=== PATIENT | male | born 1965 | race Caucasian/White ===

== ENCOUNTER 2020-01-08 17:21 | Observation (INO) | payer OTHER ==
--- NOTE | 2020-01-08 17:27 | PDOC ---
History of Present Illness - General Chief Complaint: Cold Symptoms Stated Complaint: FLU Time Seen by Provider: 01/08/20 17:24 History Source: Patient Exam Limitations: No Limitations - History of Present Illness Initial Comments: 01/08/20 17:24 Raúl Callejas is a 54M with PMH unmedicated HTN, HLD, DM presenting with flu- like symptoms including fever and LAI. 4 days ago was at work with a [employer] company when he began to have fever, chills, myalgias, diarrhea to the point of being unable to work, tried to sleep it off but did not improve overnight, got a ride back home the next day. Did not improve as the week went on, tried pablo tea and other remedies to control fev er, took Tylenol 2 days ago. No N/V, poor appetite but good PO liquids. Has had constant coughing with yellow mucoid sputum, and says that his abdomen did not hurt earlier this week but started having sore abdominal muscles after coughing so much, denies any other abdominal pain or urinary sx. LAI describes as intermittent frontal LAI lasting 20 mins and disappears on its own, no vision changes but feels dizzy. Reports chest pain at rest last night and this morning, sharp and non-radiating below sternum, denies any recent trauma, palpitations, or SOB, has not had sx like this before. Has history of HTN, DM, and HLD, but has not seed a doctor in years and does not take medications. Diagnosed when he was taking out life insurance and was being evaluated. Says his BP is normally in the 170s to 190s, and that he tries to control his diabetes with diet only and does not check BG. Past History - Past Medical History Allergies/Adverse Reactions: Allergies Allergy/AdvReac Type Severity Reaction Status Date / Time No Known Allergies Allergy Verified 01/08/20 17:23 Home Medications: Ambulatory Orders NK [No Known Home Medication] 01/08/20 Diabetes: No HTN: No - Psycho Social/Smoking Cessation Hx Smoking Status: Yes Smoking History: Current every day smoker Number of Cigarettes Smoked Daily: 10 Review of Systems - Review of Systems Able to Perform ROS?: Yes Constitutional: Yes: Chills HEENTM: No: Eye Pain, Blurred Vision, Throat Swelling, Mouth Pain, Dental Problems, Difficulty Swallowing Respiratory: Yes: Cough, Productive cough. No: Shortness of Breath Cardiac (ROS): Yes: Chest Pain. No: Irregular Heart Rate, Lightheadedness, Palpitations, Syncope, Chest Tightness ABD/GI: Yes: Diarrhea, Nausea, Poor Appetite, Poor Fluid Intake, Abdominal cramping. No: Constipated, Difficulty Swallowing, Vomiting : No: Symptoms Reported Musculoskeletal: No: Symptoms Reported Integumentary: No: Symptoms Reported Neurological: Yes: Headache, Dizziness. No: Numbness, Paresthesia, Unsteady Gait Endocrine: No: Symptoms Reported Hematologic/Lymphatic: No: Symptoms Reported All Other Systems: Reviewed and Negative *Physical Exam - Physical Exam General Appearance: Yes: Nourished, Appropriately Dressed, Obese HEENT: positive: EOMI, MAX, Normal Voice, Symmetrical, Pharynx Normal, Hearing Grossly Normal. negative: Scleral Icterus (R), Scleral Icterus (L), Pharyngeal Erythema, Tonsillar Exudate, Tonsillar Erythema Neck: positive: Trachea midline, Normal Thyroid, Supple. negative: Tender, Rigid, Lymphadenopathy (R), Lymphadenopathy (L), Tender lateral, Tender midline Respiratory/Chest: positive: Lungs Clear, Normal Breath Sounds, Respiratory Distress. negative: Chest Tender, Accessory Muscle Use, Labored Respiration, Rapid RR, Decreased Breath Sounds, Crackles, Rales, Rhonchi, Stridor, Wheezing Cardiovascular: positive: Regular Rhythm, Regular Rate. negative: Murmur Gastrointestinal/Abdominal: positive: Normal Bowel Sounds, Flat, Soft. negative: Tender, Organomegaly, Pulsatile Mass, Guarding, Rebound Musculoskeletal: positive: Normal Inspection. negative: CVA Tenderness Extremity: positive: Normal Capillary Refill, Normal Inspection, Normal Range of Motion, Pelvis Stable. negative: Tender, Coldness, Cyanosis, Pedal Edema, Swelling, Calf Tenderness Integumentary: positive: Normal Color, Dry, Warm Neurologic: positive: Fully Oriented, Alert, Normal Mood/Affect, Normal Response, Motor Strength 5/5. negative: Numbness, Sensory Deficit ED Treatment Course - LABORATORY CBC & Chemistry Diagram: 01/08/20 18:45 01/08/20 18:45 Medical Decision Making - Medical Decision Making 01/08/20 19:44 Patient his concerning history of HTn, HLD, DM all unmedicated presenting with flu-like sx and new onset chest pain at rest, highly concerning for ACS. Myalgias, LAI, cough, fever all consistent with overlying influenza vs. URI vs. PNA vs. bronchitis. Evaluating broadly for these pathologies and will admit for tele/obs. VS in ED shows HTN, exam unremarkable for concerning findings. 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 Carrera 01/08/20 19:49 Flu still pending. Discharge - Discharge Information Problems reviewed: Yes Clinical Impression/Diagnosis: Bronchitis Chest pain Qualifiers: Chest pain type: unspecified Qualified Code(s): R07.9 - Chest pain, unspecified Condition: Guarded - Admission Yes - Follow up/Referral - Patient Discharge Instructions Patient Printed Discharge Instructions: DI for Viral Upper Respiratory Infection -- Adult Additional Instructions: Today you were evaluated for flu-like symptoms. At home, please follow-up with your primary doctor in the next week. Take Tylenol or Motrin as instructed on the label for fevers, headaches, or pain. If you experience worsening fever, chills, headache, nausea, vomiting, abdominal pain, shortness of breath, or any other new or concerning symptoms, please return to the emergency room. - Post Discharge Activity
[2020-01-08] MEDS ORDERED: ACETAMINOPHEN 1000 MG/100 ML VIAL (NON FORMULARY) IVPB ONE (17:55)
[2020-01-08] MEDS ORDERED: SODIUM CHLORIDE 0.9% 500 ML INFUS.BAG IV ONE (17:55)
[2020-01-08] MEDS ORDERED: ALBUTEROL SO4 2.5/IPRATROPIUM 0.5 INH SOL 3 ML VIAL.NEB. NEB ONE ×2 (18:21→18:22)
[2020-01-08] MEDS ORDERED: ACETAMINOPHEN INJECTION 100 ML IVPB ONE (18:39)
[2020-01-08 19:05] LABS: ALBUMIN 3.6 g/dl (3.4-5.0); BILIRUBIN,TOTAL 0.1 mg/dl (0.2-1); CALCIUM 8.9 mg/dl (8.5-10); CREATININE 1.2 mg/dl (0.55-1.3); TOT PROT 6.4 g/dl (6.4-8.2)
[2020-01-08 19:08] LABS: HEMATOCRIT 46.7 % (35.4-49); HEMOGLOBIN 15.4 GM/dl (11.7-16.9); MCH 28.2 pg (25.7-33.7); MCHC 32.8 g/dl (32.0-35.9); MEAN CELL VOLUME 85.9 fl (80-96); RBC 5.44 M/mm3 (4.00-5.60); WHITE BLOOD COUNT 4.9 K/mm3 (4.0-10.8)
[2020-01-08 19:09] LABS: MEAN PLT VOLUME 11.1 fl (7.5-11.1); PLATELET COUNT 208 K/MM3 (134-434); RDW 13.7 % (11.9-15.9)
--- NOTE | 2020-01-08 19:14 | PDOC ---
Attending Attestation - Resident Resident Name: Milton Olivera - ED Attending Attestation I have performed the following: I have examined & evaluated the patient, The case was reviewed & discussed with the resident, I agree w/resident's findings & plan, Exceptions are as noted - HPI HPI: 01/08/20 19:11 54-year-old male history of hypertension diabetes and obesity longtime smoker currently not followed by COPD not taking any medications here today with complaining of cough myalgias body aches fevers chills for 4 days. Patient states he initially felt like he had subjective fevers however he never did check it did not take any Tylenol or Motrin prior to arrival. Also describes a chest tightness which is worse with walking he has had off-and-on but is been worse the last few days. No history of previous cardiac work-up. Patient de nies any travel recently denies any known Covidien 19 exposure no known sick contacts. No nausea no vomiting no abdominal pain no recent leg swelling no family history of heart disease - Physicial Exam PE: 01/08/20 19:12 Awake alert lungs are with decreased breath sounds bilateral bases poor airflow normal effort no crackles no audible wheezing. Heart is regular without a murmurs rubs or gallops abdomen is soft nontender obese skin is warm and dry no rash appreciated extremities are warm well perfused no noted peripheral edema symmetric pulses bilaterally. Patient is awake alert and oriented x3 - Medical Decision Making 01/08/20 19:13 54-year-old male history of hypertension diabetes obesity and smoking here with febrile illness cough congestion in addition chest pain. Differential includes viral syndrome bronchitis COPD exacerbation pneumonia angina or ACS hyperglycemia to the fact the patient is poorly controlled does not follow with a PCP and is not currently taking any medication for his hypertension diabetes failure is high risk for heart disease. Likely require admission. Chest x-ray shows questionable opacification of the right heart border and left base he was given 1 DuoNeb with improvement to his symptoms he is afebrile here in the ED given Levaquin for bronchitis patient will be admitted for telemetry bronchitis likely COPD and serial troponins Heart Score/ECG Review #1 General ECG Interpretation: Sinus Rhythm, Normal Rate (91), Normal Intervals, No acute ischemic changes
[2020-01-08] MEDS ORDERED: ASPIRIN 81 MG CHEWABLE TABLETS PO ONE (19:15)
[2020-01-08] MEDS ORDERED: ASPIRIN 81 MG CHEWABLE TABLETS ONE (19:19)
--- NOTE | 2020-01-08 19:34 | PDOC ---
*Physical Exam - Vital Signs Last Vital Signs Temp Pulse Resp BP Pulse Ox 98.3 F 88 18 125/77 100 01/08/20 19:25 01/08/20 19:25 01/08/20 19:25 01/08/20 19:25 01/08/20 19:25 ED Treatment Course - LABORATORY CBC & Chemistry Diagram: 01/08/20 18:45 01/08/20 18:45 - ADDITIONAL ORDERS Additional order review: Laboratory Results 01/08/20 01/08/20 01/08/20 18:45 18:45 18:45 Sodium 136 Potassium 4.0 Chloride 105 Carbon Dioxide 23 Anion Gap 8 BUN 26.0 H Creatinine 1.2 Est GFR (CKD-EPI)AfAm 78.43 Est GFR (CKD-EPI)NonAf 67.67 Random Glucose 198 H Calcium 8.9 Total Bilirubin 0.1 L AST 29 ALT 49 Alkaline Phosphatase 59 Creatine Kinase 301 Creatine Kinase Index 0.4 CK-MB (CK-2) 1.5 Troponin I < 0.03 Total Protein 6.4 Albumin 3.6 01/08/20 18:45 RBC 5.44 MCV 85.9 MCHC 32.8 RDW 13.7 MPV 11.1 Neutrophils % No Result Required. Lymphocytes % No Result Required. - Medications Given in the ED: ED Medications Discontinued Medications Generic Name Dose Route Start Last Admin Trade Name Lucio PRN Reason Stop Dose Admin Acetaminophen 1,000 mg 01/08/20 17:55 01/08/20 18:38 Ofirmev Injection - IVPB 01/08/20 17:56 1,000 mg ONCE ONE Administration Albuterol/Ipratropium 1 amp 01/08/20 18:21 01/08/20 18:38 Duoneb - NEB 01/08/20 18:22 1 amp ONCE ONE Administration Aspirin 162 mg 01/08/20 19:15 01/08/20 19:21 Asa - PO 01/08/20 19:16 162 mg ONCE ONE Administration Sodium Chloride 1,000 ml 01/08/20 17:55 01/08/20 18:38 Normal Saline - IV 01/08/20 17:56 1,000 ml ONCE ONE Administration ED Progress Note - Progress Note Progress Note: Care of this patient received from Dr. Kowalski. [facility], productive cough and shortness of breath. Since patient has multiple risk factors for coronary artery disease and no medical follow-up, patient being admitted for full rule out of acute AR and treatment of his bronchitis. Discharge - Discharge Information Problems reviewed: Yes Clinical Impression/Diagnosis: Bronchitis Chest pain Qualifiers: Chest pain type: unspecified Qualified Code(s): R07.9 - Chest pain, unspecified Condition: Guarded - Admission Yes - Follow up/Referral - Patient Discharge Instructions - Post Discharge Activity
[2020-01-08 20:18] LABS: PLATELET ESTIMATE ADEQUATE
--- NOTE | 2020-01-08 21:17 | HP ---
CHIEF COMPLAINT: Flu Like Symptoms, Productive Cough, Chest Pain PCP: None HISTORY OF PRESENT ILLNESS: This is a 54 y/o man with a PMHx of HTN, HLD, DM (not taking any medication, only homeopathic). Who presents to the ED with flu-like symptoms including fever and LAI since last Friday. 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 He reports trying home-made remedies, and taking Tylenol OTC without improvement. Patient reports having right sided chest pain non radiating that started 2 days ago, while at rest. Patient reports being seen by an insurance nurse recently and was told that his BP was elevated and that he should go to the hospital for evaluation, patient reports that he did not go for evaluation. Patient reports that his BP is normally in the 170s to 190s, and that he tries to control his diabetes with diet only and does not check his blood sugar. 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 Allergies No Known Allergies Allergy (Verified 01/08/20 17:23) HOME MEDICATIONS: Home Medications Medication Instructions Recorded NK [No Known Home Medication] 01/08/20 REVIEW OF SYSTEMS CONSTITUTIONAL: fever, chills, generalized weakness, malaise, loss of appetite Absent: diaphoresis, weight change HEENT: nasal congestion, throat pain Absent: rhinorrhea,throat swelling, difficulty swallowing, mouth swelling, ear pain, eye pain, visual changes CARDIOVASCULAR: chest pain, Absent: syncope, palpitations, irregular heart rate, lightheadedness, peripheral edema RESPIRATORY: cough, shortness of breath, wheezing Absent: dyspnea with exertion, orthopnea, stridor, hemoptysis GASTROINTESTINAL: Absent: abdominal pain, abdominal distension, nausea, vomiting, diarrhea, constipation, melena, hematochezia GENITOURINARY: Absent: dysuria, frequency, urgency, hesitancy, hematuria, flank pain, genital pain MUSCULOSKELETAL: myalgia Absent: arthralgia, joint swelling, back pain, neck pain SKIN: Absent: rash, itching, pallor HEMATOLOGIC/IMMUNOLOGIC: Absent: easy bleeding, easy bruising, lymphadenopathy, frequent infections ENDOCRINE: Absent: unexplained weight gain, unexplained weight loss, heat intolerance, cold intolerance NEUROLOGIC: headache,dizziness Absent: focal weakness or paresthesias, unsteady gait, seizure, mental status changes, bladder or bowel incontinence PSYCHIATRIC: Absent: anxiety, depression, suicidal or homicidal ideation, hallucinations. PHYSICAL EXAMINATION Vital Signs - 24 hr 01/08/20 01/08/20 01/08/20 17:21 19:25 20:53 Temperature 98.8 F 98.3 F Pulse Rate 100 H Pulse Rate [ 88 Radial] Respiratory 20 18 Rate Blood Pressure 159/80 Blood Pressure 125/77 [Arm] O2 Sat by Pulse 99 100 99 Oximetry (%) 01/08/20 21:12 Temperature 97.7 F Pulse Rate 86 Pulse Rate [ Radial] Respiratory 18 Rate Blood Pressure 144/70 Blood Pressure [Arm] O2 Sat by Pulse Oximetry (%) GENERAL: Awake, alert, and fully oriented, in no acute distress. HEAD: Normal with no signs of trauma. EYES: Pupils equal, round and reactive to light, extraocular movements intact, sclera anicteric, conjunctiva clear. No lid lag. EARS, NOSE, THROAT: Dry mucous membranes. Ears normal, nares patent, oropharynx clear without exudates. NECK: Normal range of motion, supple without lymphadenopathy, JVD, or masses. LUNGSL: Fine scattered Rhonchi, diminished at bases. No accessory muscle use. HEART: Regular rate and rhythm, normal S1 and S2 without murmur, rub or gallop. ABDOMEN: Obese Soft, nontender, not distended, normoactive bowel sounds, no guarding, no rebound, no masses. No hepatomegaly or splenomegaly. MUSCULOSKELETAL: Normal range of motion at all joints. No bony deformities or tenderness. No CVA tenderness. UPPER EXTREMITIES: 2+ pulses, warm, well-perfused. No cyanosis. No clubbing. No peripheral edema. LOWER EXTREMITIES: 2+ pulses, warm, well-perfused. No calf tenderness. No peripheral edema. NEUROLOGICAL: Cranial nerves II-XII intact. Normal speech. Gait not observed. PSYCHIATRIC: Cooperative. Good eye contact. Appropriate mood and affect. SKIN: Warm, dry, normal turgor, no rashes or lesions noted, normal capillary refill. Laboratory Results - last 24 hr 01/08/20 01/08/20 01/08/20 18:45 18:45 18:45 WBC 4.9 RBC 5.44 Hgb 15.4 Hct 46.7 MCV 85.9 MCH 28.2 MCHC 32.8 RDW 13.7 Plt Count 208 MPV 11.1 Absolute Neuts (auto) 3.1 Neutrophils % No Result Required. Neutrophils % (Manual) 62.0 Band Neutrophils % 10.0 Lymphocytes % No Result Required. Lymphocytes % (Manual) 18.0 Monocytes % (Manual) 4 Eosinophils % (Manual) 3.0 Platelet Estimate Adequate Sodium 136 Potassium 4.0 Chloride 105 Carbon Dioxide 23 Anion Gap 8 BUN 26.0 H Creatinine 1.2 Est GFR (CKD-EPI)AfAm 78.43 Est GFR (CKD-EPI)NonAf 67.67 Random Glucose 198 H Calcium 8.9 Total Bilirubin 0.1 L AST 29 ALT 49 Alkaline Phosphatase 59 Creatine Kinase Creatine Kinase Index CK-MB (CK-2) Troponin I < 0.03 Total Protein 6.4 Albumin 3.6 Influenza A (Rapid) Influenza B (Rapid) 01/08/20 01/08/20 18:45 19:15 WBC RBC Hgb Hct MCV MCH MCHC RDW Plt Count MPV Absolute Neuts (auto) Neutrophils % Neutrophils % (Manual) Band Neutrophils % Lymphocytes % Lymphocytes % (Manual) Monocytes % (Manual) Eosinophils % (Manual) Platelet Estimate Sodium Potassium Chloride Carbon Dioxide Anion Gap BUN Creatinine Est GFR (CKD-EPI)AfAm Est GFR (CKD-EPI)NonAf Random Glucose Calcium Total Bilirubin AST ALT Alkaline Phosphatase Creatine Kinase 301 Creatine Kinase Index 0.4 CK-MB (CK-2) 1.5 Troponin I Total Protein Albumin Influenza A (Rapid) Negative Influenza B (Rapid) Negative ASSESSMENT/PLAN: This is a 54 y/o male with a PMHx of HTN, HLD, DM (not on rx meds, takes Homeopathic). Admitted for Chest Pain r/o ACS, Acute Bronchitis with COPD for further evaluation of their emergent condition. Plan: See Problem List FEN Po fluids as tolerated Replete lytes prn Low Na, Diabetic Diet DVT ppx OOB SCDs Heparin SQ Code Status: Full Code Dispo: Requires Inpatient Care Family Medical History Family History: Unremarkable Problem List - Problem (1) Chest pain Assessment/Plan: r/o ACS Likely Pleurtic secondary to excessive coughing HEART Score 4 YULISSA Risk index 19, low probability Serial Enzymes negx2, trend Appreciate Cardiology consult Echo Asa Continue cardiac monitoring Monitor CBC, BMP Code(s): R07.9 - CHEST PAIN, UNSPECIFIED Qualifiers: Chest pain type: unspecified Qualified Code(s): R07.9 - Chest pain, unspecified (2) Acute bronchitis Assessment/Plan: Will treat based on Dyspnea and Sputum production Levaquin given in ED, will continue Sputum culture Chest xray-reviewed Appreciate Pulm consult Carolyn Smoking Cessation Monitor vitals Code(s): J20.9 - ACUTE BRONCHITIS, UNSPECIFIED (3) COPD with lower respiratory infection Assessment/Plan: Probable COPD undiagnosed Patient reports not seeing a PCP in years Chest Xray-reviewed Influenza A+B neg Continue Duonebs Appreciate Pulmonology consult O2, prn Consider adding LABA Spirometry testing when d/c in outpatient Smoking Cessation Monitor vitals Code(s): J44.0 - CHR OBSTRUCTIVE PULMON DISEASE WITH (ACUTE) LOWER RESP INFCT (4) HTN (hypertension) Assessment/Plan: sub optimal Monitor BP Will start on ACEi secondary to untreated Diabetes Appreciate Cardiology consult Monitor renal function Code(s): I10 - ESSENTIAL (PRIMARY) HYPERTENSION (5) Diabetes mellitus Assessment/Plan: BGMS ISS HgbA1c in am Will need to start on Oral Glycemic, awaiting HgbA1c RD consult Code(s): E11.9 - TYPE 2 DIABETES MELLITUS WITHOUT COMPLICATIONS (6) Tobacco dependence due to cigarettes Assessment/Plan: Counseled on smoking cessation, patient is amendable Nicoderm Patch Code(s): F17.210 - NICOTINE DEPENDENCE, CIGARETTES, UNCOMPLICATED Visit type - Emergency Visit Emergency Visit: Yes ED Registration Date: 01/08/20 Care time: The patient presented to the Emergency Department on the above date and was hospitalized for further evaluation of their emergent condition. - New Patient This patient is new to me today: Yes Date on this admission: 01/08/20 - Critical Care Critical Care patient: No
[2020-01-08 21:29] VITALS: BMI 40.1
[2020-01-08] MEDS ORDERED: FAMOTIDINE 20 MG TABLET PO ONE (21:36)
[2020-01-09] MEDS ORDERED: guaiFENesin/D-METHORPHAN HB 10 ML UNIT-DOSE CUPS PO PRN (03:51)
[2020-01-09] MEDS ORDERED: ALBUTEROL SO4 2.5/IPRATROPIUM 0.5 INH SOL 3 ML VIAL.NEB. NEB PRN (03:52)
[2020-01-09 06:53] VITALS: PULSE 80
--- NOTE | 2020-01-09 09:13 | PN ---
Progress Note (short form) - Note Progress Note: [facility] COMPLAINT: Flu Like Symptoms, Productive Cough, Chest Pain PCP: None HISTORY OF PRESENT ILLNESS: This is a 54 y/o man with a PMHx of HTN, HLD, DM (not taking any medication, only homeopathic). Who presents to the ED with flu-like symptoms including fever and LAI since last Friday. 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 He reports trying home-made remedies, and taking Tylenol OTC without improvement. Patient reports having right sided chest pain non radiating that started 2 days ago, while at rest. Patient reports being seen by an insurance nurse recently and was told that his BP was elevated and that he should go to the hospital for evaluation, patient reports that he did not go for evaluation. Patient reports that his BP is normally in the 170s to 190s, and that he tries to control his diabetes with diet only and does not check his blood sugar. CPs rather after severe cough ,at rest; now overall feeling better. 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) PAST MEDICAL HISTORY: See HPI PAST SURGICAL HISTORY: None Social History: SmokinPPD x 43 yrs Alcohol: Denies Drugs: Denies lives with , employed [employer] Allergies No Known Allergies Allergy (Verified 01/08/20 17:23) HOME MEDICATIONS: Home Medications Medication Instructions Recorded NK [No Known Home Medication] 01/08/20 REVIEW OF SYSTEMS CONSTITUTIONAL: fever, chills, generalized weakness, malaise, loss of appetite Absent: diaphoresis, weight change HEENT: nasal congestion, throat pain Absent: rhinorrhea,throat swelling, difficulty swallowing, mouth swelling, ear pain, eye pain, visual changes CARDIOVASCULAR: chest pain, Absent: syncope, palpitations, irregular heart rate, lightheadedness, peripheral edema RESPIRATORY: cough, shortness of breath, wheezing Absent: dyspnea with exertion, orthopnea, stridor, hemoptysis GASTROINTESTINAL: Absent: abdominal pain, abdominal distension, nausea, vomiting, diarrhea, constipation, melena, hematochezia GENITOURINARY: Absent: dysuria, frequency, urgency, hesitancy, hematuria, flank pain, genital pain MUSCULOSKELETAL: myalgia Absent: arthralgia, joint swelling, back pain, neck pain SKIN: Absent: rash, itching, pallor HEMATOLOGIC/IMMUNOLOGIC: Absent: easy bleeding, easy bruising, lymphadenopathy, frequent infections ENDOCRINE: Absent: unexplained weight gain, unexplained weight loss, heat intolerance, cold intolerance NEUROLOGIC: headache,dizziness Absent: focal weakness or paresthesias, unsteady gait, seizure, mental status changes, bladder or bowel incontinence PSYCHIATRIC: Absent: anxiety, depression, suicidal or homicidal ideation, hallucinations. Vital Signs Temperature 98.9 F 01/09/20 06:00 Pulse Rate 80 01/09/20 06:00 Respiratory Rate 18 01/09/20 06:00 Blood Pressure 146/82 01/09/20 06:00 O2 Sat by Pulse Oximetry (%) 99 01/09/20 06:11 CBC, BMP 01/08/20 18:45 01/08/20 18:45 PHYSICAL EXAMINATION GENERAL: Awake, alert, and fully oriented, in no acute distress. HEAD: Normal with no signs of trauma. EYES: Pupils equal, round and reactive to light, extraocular movements intact, sclera anicteric, conjunctiva clear. No lid lag. EARS, NOSE, THROAT: Dry mucous membranes. Ears normal, nares patent, oropharynx clear without exudates. NECK: Normal range of motion, supple without lymphadenopathy, JVD, or masses. LUNGSL: Fine scattered Rhonchi, diminished at bases. No accessory muscle use. HEART: Regular rate and rhythm, normal S1 and S2 without murmur, rub or gallop. ABDOMEN: Obese Soft, nontender, not distended, normoactive bowel sounds, no guarding, no rebound, no masses. No hepatomegaly or splenomegaly. MUSCULOSKELETAL: Normal range of motion at all joints. No bony deformities or tenderness. No CVA tenderness. UPPER EXTREMITIES: 2+ pulses, warm, well-perfused. No cyanosis. No clubbing. No peripheral edema. LOWER EXTREMITIES: 2+ pulses, warm, well-perfused. No calf tenderness. No peripheral edema. NEUROLOGICAL: Cranial nerves II-XII intact. Normal speech. Gait not observed. PSYCHIATRIC: Cooperative. Good eye contact. Appropriate mood and affect. SKIN: Warm, dry, normal turgor, no rashes or lesions noted, normal capillary refill. Laboratory Results - last 24 hr 01/08/20 01/08/20 01/08/20 18:45 18:45 18:45 WBC 4.9 RBC 5.44 Hgb 15.4 Hct 46.7 MCV 85.9 MCH 28.2 MCHC 32.8 RDW 13.7 Plt Count 208 MPV 11.1 Absolute Neuts (auto) 3.1 Neutrophils % No Result Required. Neutrophils % (Manual) 62.0 Band Neutrophils % 10.0 Lymphocytes % No Result Required. Lymphocytes % (Manual) 18.0 Monocytes % (Manual) 4 Eosinophils % (Manual) 3.0 Platelet Estimate Adequate Sodium 136 Potassium 4.0 Chloride 105 Carbon Dioxide 23 Anion Gap 8 BUN 26.0 H Creatinine 1.2 Est GFR (CKD-EPI)AfAm 78.43 Est GFR (CKD-EPI)NonAf 67.67 Random Glucose 198 H Calcium 8.9 Total Bilirubin 0.1 L AST 29 ALT 49 Alkaline Phosphatase 59 Creatine Kinase Creatine Kinase Index CK-MB (CK-2) Troponin I < 0.03 Total Protein 6.4 Albumin 3.6 Influenza A (Rapid) Influenza B (Rapid) 01/08/20 01/08/20 18:45 19:15 WBC RBC Hgb Hct MCV MCH MCHC RDW Plt Count MPV Absolute Neuts (auto) Neutrophils % Neutrophils % (Manual) Band Neutrophils % Lymphocytes % Lymphocytes % (Manual) Monocytes % (Manual) Eosinophils % (Manual) Platelet Estimate Sodium Potassium Chloride Carbon Dioxide Anion Gap BUN Creatinine Est GFR (CKD-EPI)AfAm Est GFR (CKD-EPI)NonAf Random Glucose Calcium Total Bilirubin AST ALT Alkaline Phosphatase Creatine Kinase 301 Creatine Kinase Index 0.4 CK-MB (CK-2) 1.5 Troponin I Total Protein Albumin Influenza A (Rapid) Negative Influenza B (Rapid) Negative ASSESSMENT/PLAN: Problem List - Problem (1) Chest pain Assessment/Plan: -Appears atypical, normal ECG,negative CXR and Trop, nl WBC -Treat underlying risk factors: HTN,DM, check lipids -manage underlying URTI -Echo -Will need a stress test as outpatient due to multiple risk factors: -Pls make f/u with me: [phone] -Other A/P as per primary team Code(s): R07.9 - CHEST PAIN, UNSPECIFIED Qualifiers: Chest pain type: unspecified Qualified Code(s): R07.9 - Chest pain, unspecified (2) Acute bronchitis Assessment/Plan: Code(s): J20.9 - ACUTE BRONCHITIS, UNSPECIFIED (3) COPD with lower respiratory infection Assessment/Plan: Code(s): J44.0 - CHR OBSTRUCTIVE PULMON DISEASE WITH (ACUTE) LOWER RESP INFCT (4) HTN (hypertension) Assessment/Plan: sub optimal Monitor BP Start therapy Code(s): I10 - ESSENTIAL (PRIMARY) HYPERTENSION (5) Diabetes mellitus Assessment/Plan: B Code(s): E11.9 - TYPE 2 DIABETES MELLITUS WITHOUT COMPLICATIONS (6) Tobacco dependence due to cigarettes Assessment/Plan: Counseled on smoking cessation, patient is amendable Nicoderm Patch Code(s): F17.210 - NICOTINE DEPENDENCE, CIGARETTES, UNCOMPLICATED
[2020-01-09] MEDS: NICOTINE 7 MG/24 HOURS TOPICAL PATCH TD SCH ×2 (09:30→09:56)
[2020-01-09 09:38] LABS: EOS % 1.6 % (0-4.5); HEMOGLOBIN 14.1 GM/dl (11.7-16.9); LYMPH % 38.2 % (8-40); MCH 28.9 pg (25.7-33.7); MCHC 33.6 g/dl (32.0-35.9); MONO % 10.3 % (3.8-10.2); NEUT % 49.9 % (42.8-82.8); PLATELET COUNT 168 K/MM3 (134-434); RBC 4.88 M/mm3 (4.00-5.60); RDW 13.3 % (11.9-15.9); WHITE BLOOD COUNT 3.3 K/mm3 (4.0-10.8)
--- NOTE | 2020-01-09 09:48 | PN ---
Physical Exam: SUBJECTIVE: Patient seen and examined OBJECTIVE: Vital Signs Period Temp Pulse Resp BP Sys/Maloney Pulse Ox Last 24 Hr 97.7 F-98.9 F 80-100 18-20 125-159/70-82 98-100 Laboratory Results - last 24 hr 01/08/20 01/08/20 01/08/20 18:45 18:45 18:45 WBC 4.9 RBC 5.44 Hgb 15.4 Hct 46.7 MCV 85.9 MCH 28.2 MCHC 32.8 RDW 13.7 Plt Count 208 MPV 11.1 Absolute Neuts (auto) 3.1 Neutrophils % No Result Required. Neutrophils % (Manual) 62.0 Band Neutrophils % 10.0 Lymphocytes % No Result Required. Lymphocytes % (Manual) 18.0 Monocytes % (Manual) 4 Eosinophils % (Manual) 3.0 Platelet Estimate Adequate Sodium 136 Potassium 4.0 Chloride 105 Carbon Dioxide 23 Anion Gap 8 BUN 26.0 H Creatinine 1.2 Est GFR (CKD-EPI)AfAm 78.43 Est GFR (CKD-EPI)NonAf 67.67 POC Glucometer Random Glucose 198 H Calcium 8.9 Total Bilirubin 0.1 L AST 29 ALT 49 Alkaline Phosphatase 59 Creatine Kinase Creatine Kinase Index CK-MB (CK-2) Troponin I < 0.03 Total Protein 6.4 Albumin 3.6 Influenza A (Rapid) Influenza B (Rapid) 01/08/20 01/08/20 01/09/20 18:45 19:15 00:05 WBC RBC Hgb Hct MCV MCH MCHC RDW Plt Count MPV Absolute Neuts (auto) Neutrophils % Neutrophils % (Manual) Band Neutrophils % Lymphocytes % Lymphocytes % (Manual) Monocytes % (Manual) Eosinophils % (Manual) Platelet Estimate Sodium Potassium Chloride Carbon Dioxide Anion Gap BUN Creatinine Est GFR (CKD-EPI)AfAm Est GFR (CKD-EPI)NonAf POC Glucometer Random Glucose Calcium Total Bilirubin AST ALT Alkaline Phosphatase Creatine Kinase 301 Creatine Kinase Index 0.4 CK-MB (CK-2) 1.5 Troponin I 0.03 Total Protein Albumin Influenza A (Rapid) Negative Influenza B (Rapid) Negative 01/09/20 06:21 WBC RBC Hgb Hct MCV MCH MCHC RDW Plt Count MPV Absolute Neuts (auto) Neutrophils % Neutrophils % (Manual) Band Neutrophils % Lymphocytes % Lymphocytes % (Manual) Monocytes % (Manual) Eosinophils % (Manual) Platelet Estimate Sodium Potassium Chloride Carbon Dioxide Anion Gap BUN Creatinine Est GFR (CKD-EPI)AfAm Est GFR (CKD-EPI)NonAf POC Glucometer 176 Random Glucose Calcium Total Bilirubin AST ALT Alkaline Phosphatase Creatine Kinase Creatine Kinase Index CK-MB (CK-2) Troponin I Total Protein Albumin Influenza A (Rapid) Influenza B (Rapid) Active Medications Generic Name Dose Route Start Last Admin Trade Name Freq PRN Reason Stop Dose Admin Albuterol/Ipratropium 1 amp 01/09/20 03:52 Duoneb - NEB Q6H PRN SHORTNESS OF BREATH Aspirin 81 mg 01/09/20 10:00 Asa - PO DAILY RAI Guaifenesin 10 ml 01/09/20 03:51 Robitussin Dm - PO Q6H PRN COUGH Levofloxacin 750 mg in 150 mls @ 100 mls/hr 01/09/20 10:00 Levaquin 750 Mg Premixed Ivpb - IVPB DAILY RAI Protocol Insulin Aspart 0 vial 01/09/20 11:00 Novolog Vial Sliding Scale - SQ ACHS RAI Protocol Lisinopril 10 mg 01/09/20 10:00 Prinivil PO DAILY RAI Nicotine 7 mg 01/09/20 10:00 Nicoderm Patch - TD DAILY RAI CxR: No acute lung pathology ASSESSMENT/PLAN: 54-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 Pt denies any known Covid- 19 exposure or known sick contacts. No SOB,nausea no vomiting no abdominal pain no recent leg swelling. *Chest pain,Likely Pleurtic secondary to excessive coughing, R/O ACS -HEART Score 4 Trop neg x2 - EKG: SR, no acute ST changes -Cardiology consult input appreciated,rec stress test as outpatient -Echo -tele monitoring *Acute bronchitis, hx of smoking, ?COPD undiagnosed -s/p Levaquin given in ED, will continue -Sputum culture -Chest xray- no acute lung pathology -pul consult -Duonebs/ cough meds -monitor pulse ox - Influenza negative * Hx of Smoking -started on Nicotine patch -Smoking Cessation * HTN -started on ACEi secondary to untreated Diabetes - will monitor renal function *Diabetes mellitus- not on meds at home - FS AC& HS - Lispro sliding scale - Consistent carb diet - will check Hgb Alc -RD consult * F/E/N - Consistent / low Na diet -Replace electrolyte as needed * VTE: Lovenox
--- NOTE | 2020-01-09 09:53 | EKG ---
Test Reason : Blood Pressure : / mmHG Vent. Rate : 091 BPM Atrial Rate : 091 BPM P-R Int : 174 ms QRS Dur : 076 ms QT Int : 374 ms P-R-T Axes : 052 068 070 degrees QTc Int : 460 ms SINUS RHYTHM WITH PREMATURE ATRIAL COMPLEXES OTHERWISE NORMAL ECG NO PREVIOUS ECGS AVAILABLE Confirmed by Willie Moncada MD ([id number]) on 01/09/2020 9:53:13 AM Referred By: Confirmed By:Willie Moncada MD
[2020-01-09] MEDS ORDERED: ENOXAPARIN NA (PORCINE) 40 MG/0.4 ML DISP.SYRIN SQ SCH (10:00)
[2020-01-09] MEDS ORDERED: ASPIRIN 81 MG CHEWABLE TABLETS PO SCH (10:00)
[2020-01-09] MEDS ORDERED: LISINOPRIL 10 MG TABLET (FP) PO SCH (10:00)
[2020-01-09 10:06] VITALS: BP 155/81; TEMP 97.7
[2020-01-09 10:06] LABS: CREATININE 0.7 mg/dl (0.55-1.3); MAGNESIUM 1.7 mg/dL (1.8-2.4); POTASSIUM 4.1 mmol/L (3.5-5.1)
[2020-01-09] MEDS ORDERED: MAGNESIUM OXIDE 400 MG TABLET (FP) PO ONE (10:45)
[2020-01-09] MEDS ORDERED: INSULIN SLIDING SCALE (NOVOLOG) 1 VIAL SQ SCH (11:00)
--- NOTE | 2020-01-09 12:50 | CON.ID ---
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 the ED with flu-like symptoms including fever and LAI since last Friday. 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 He reports trying home-made remedies, and taking Tylenol OTC without improvement. Patient reports having right sided chest pain non radiating that started 2 days ago, while at rest. Patient reports being seen by an insurance nurse recently and was told that his BP was elevated and that he should go to the hospital for evaluation, patient reports that he did not go for evaluation. Patient reports that his BP is normally in the 170s to 190s, and that he tries to control his diabetes with diet only and does not check his blood sugar. according to the patient he was feeling quite weak and his family told him to go to the hospital he tell me that every other year he has come down with flu and has had to be in bed for couple of days before he started feeling ok - History Source History Provided By: Patient Limitations to Obtaining History: No Limitations - Alcohol/Substance Use Hx Alcohol Use: No - Smoking History Smoking history: Current every day smoker Have you smoked in the past 12 months: Yes Aproximately how many cigarettes per day: 10 Home Medications - Allergies Allergies/Adverse Reactions: Allergies Allergy/AdvReac Type Severity Reaction Status Date / Time No Known Allergies Allergy Verified 01/08/20 17:23 - Home Medications Home Medications: Ambulatory Orders NK [No Known Home Medication] 01/08/20 Review of Systems - Review of Systems Constitutional: reports: Chills, Fever, Weakness Eyes: reports: No Symptoms HENT: reports: No Symptoms Neck: reports: No Symptoms Cardiovascular: reports: No Symptoms Respiratory: reports: Cough, Other Gastrointestinal: reports: No Symptoms Genitourinary: reports: No Symptoms Musculoskeletal: reports: No Symptoms Integumentary: reports: No Symptoms Neurological: reports: No Symptoms Endocrine: reports: No Symptoms Hematology/Lymphatic: reports: No Symptoms Psychiatric: reports: No Symptoms Physical Exam Vital Signs: Vital Signs Temperature 97.7 F 01/09/20 10:00 Pulse Rate 80 01/09/20 10:00 Respiratory Rate 18 01/09/20 10:00 Blood Pressure 155/81 01/09/20 10:00 O2 Sat by Pulse Oximetry (%) 99 01/09/20 06:11 Constitutional: Yes: Well Nourished, Calm, Mild Distress Eyes: Yes: Conjunctiva Clear, EOM Intact HENT: Yes: Atraumatic, Normocephalic Neck: Yes: Supple, Trachea Midline Cardiovascular: Yes: Regular Rate and Rhythm Respiratory: Yes: Regular Gastrointestinal: Yes: Normal Bowel Sounds, Soft Musculoskeletal: Yes: WNL Extremities: Yes: WNL Neurological: Yes: Alert, Oriented Psychiatric: Yes: Alert, Oriented Labs: CBC, BMP 01/09/20 06:15 01/09/20 06:00 Imaging - Results Chest X-ray: Report Reviewed, Image Reviewed Assessment/Plan this patient with multiple medical problems who comes in with flu like symptoms with flu being tested as negative from [facility] who is non complaint and has not been taking any medications now admitted patient is immunocompromised and with the recent outbreak and his profession he could be a candidate who very well could be having aguilera virus as he has the factors would suggest to do the testing for the virus panel as well as cornovirus now and also stop levaquin and start ceftriaxone on the patient
--- NOTE | 2020-01-09 14:33 | DS ---
Physical Exam: SUBJECTIVE: Patient seen and examined at bedside, report feels better, intermittent dry cough,denies cp,sob, palpitations, abdominal pain, N/V/D. OBJECTIVE: Vital Signs Period Temp Pulse Resp BP Sys/Maloney Pulse Ox Last 24 Hr 97.7 F-98.9 F 80-100 18-20 125-159/70-82 98-100 PHYSICAL EXAM LABS Laboratory Results - last 24 hr 01/08/20 01/08/20 01/08/20 18:45 18:45 18:45 WBC 4.9 RBC 5.44 Hgb 15.4 Hct 46.7 MCV 85.9 MCH 28.2 MCHC 32.8 RDW 13.7 Plt Count 208 MPV 11.1 Absolute Neuts (auto) 3.1 Neutrophils % No Result Required. Neutrophils % (Manual) 62.0 Band Neutrophils % 10.0 Lymphocytes % No Result Required. Lymphocytes % (Manual) 18.0 Monocytes % Monocytes % (Manual) 4 Eosinophils % Eosinophils % (Manual) 3.0 Basophils % Platelet Estimate Adequate Sodium 136 Potassium 4.0 Chloride 105 Carbon Dioxide 23 Anion Gap 8 BUN 26.0 H Creatinine 1.2 Est GFR (CKD-EPI)AfAm 78.43 Est GFR (CKD-EPI)NonAf 67.67 POC Glucometer Random Glucose 198 H Hemoglobin A1c % Calcium 8.9 Phosphorus Magnesium Total Bilirubin 0.1 L AST 29 ALT 49 Alkaline Phosphatase 59 Creatine Kinase Creatine Kinase Index CK-MB (CK-2) Troponin I < 0.03 Total Protein 6.4 Albumin 3.6 Triglycerides Cholesterol Total LDL Cholesterol HDL Cholesterol Influenza A (Rapid) Influenza B (Rapid) 01/08/20 01/08/20 01/09/20 18:45 19:15 00:05 WBC RBC Hgb Hct MCV MCH MCHC RDW Plt Count MPV Absolute Neuts (auto) Neutrophils % Neutrophils % (Manual) Band Neutrophils % Lymphocytes % Lymphocytes % (Manual) Monocytes % Monocytes % (Manual) Eosinophils % Eosinophils % (Manual) Basophils % Platelet Estimate Sodium Potassium Chloride Carbon Dioxide Anion Gap BUN Creatinine Est GFR (CKD-EPI)AfAm Est GFR (CKD-EPI)NonAf POC Glucometer Random Glucose Hemoglobin A1c % Calcium Phosphorus Magnesium Total Bilirubin AST ALT Alkaline Phosphatase Creatine Kinase 301 Creatine Kinase Index 0.4 CK-MB (CK-2) 1.5 Troponin I 0.03 Total Protein Albumin Triglycerides Cholesterol Total LDL Cholesterol HDL Cholesterol Influenza A (Rapid) Negative Influenza B (Rapid) Negative 01/09/20 01/09/20 01/09/20 06:00 06:15 06:15 WBC 3.3 L RBC 4.88 Hgb 14.1 Hct 42.0 MCV 86.0 MCH 28.9 MCHC 33.6 RDW 13.3 Plt Count 168 MPV 11.0 Absolute Neuts (auto) 1.7 Neutrophils % 49.9 Neutrophils % (Manual) Band Neutrophils % Lymphocytes % 38.2 Lymphocytes % (Manual) Monocytes % 10.3 H Monocytes % (Manual) Eosinophils % 1.6 Eosinophils % (Manual) Basophils % 0.0 Platelet Estimate Sodium 134 L Potassium 4.1 Chloride 107 Carbon Dioxide 21 Anion Gap 6 L BUN 18.0 Creatinine 0.7 Est GFR (CKD-EPI)AfAm 123.13 Est GFR (CKD-EPI)NonAf 106.24 POC Glucometer Random Glucose 182 H Hemoglobin A1c % Calcium 8.0 L Phosphorus 3.0 Magnesium 1.7 L Total Bilirubin AST ALT Alkaline Phosphatase Creatine Kinase Creatine Kinase Index CK-MB (CK-2) Troponin I < 0.03 Total Protein Albumin Triglycerides 132 Cholesterol 100 Total LDL Cholesterol 61 HDL Cholesterol 13 L Influenza A (Rapid) Influenza B (Rapid) 01/09/20 01/09/20 01/09/20 06:15 06:21 11:12 WBC RBC Hgb Hct MCV MCH MCHC RDW Plt Count MPV Absolute Neuts (auto) Neutrophils % Neutrophils % (Manual) Band Neutrophils % Lymphocytes % Lymphocytes % (Manual) Monocytes % Monocytes % (Manual) Eosinophils % Eosinophils % (Manual) Basophils % Platelet Estimate Sodium Potassium Chloride Carbon Dioxide Anion Gap BUN Creatinine Est GFR (CKD-EPI)AfAm Est GFR (CKD-EPI)NonAf POC Glucometer 176 171 Random Glucose Hemoglobin A1c % 8.3 H Calcium Phosphorus Magnesium Total Bilirubin AST ALT Alkaline Phosphatase Creatine Kinase Creatine Kinase Index CK-MB (CK-2) Troponin I Total Protein Albumin Triglycerides Cholesterol Total LDL Cholesterol HDL Cholesterol Influenza A (Rapid) Influenza B (Rapid) Imaging CxR: No acute lung pathology HOSPITAL COURSE: Date of Admission:01/08/20 Date of Discharge: 01/09/20 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 Pt denies any known Covid- 19 exposure or known sick contacts. No SOB,nausea no vomiting no abdominal pain no recent leg swelling. *Chest pain,Likely Pleurtic secondary to excessive coughing -HEART Score 4 Trop neg x3, ACS ruled out - EKG: SR, no acute ST changes -Cardiology consult input appreciated,rec stress test as outpatient and Echo -tele monitoring- no cardiac events * Flu like symptoms - Influenza A/B negative - spoke with Dulce Cespedes from [facility], rec to check RVP panel, if RVP panel negative, Health department will check for [place] virus - the meantime, informed to self isolate,including family members at home - [facility] will follow through *Acute bronchitis, hx of smoking, ?COPD undiagnosed -s/p Levaquin given in ED, -Chest xray- no acute lung pathology - Influenza negative - afebrile with no leukocytosis - not in any kind of acute res distress,O2 sat stable on RA - seen by ID Dr. Mattson, rec to treat empirically with Augmentin for 5 days due to risk factors. * Hx of Smoking -started on Nicotine patch -Smoking Cessation counseling done * HTN -started on ACEi secondary to untreated Diabetes - to monitor BP *Diabetes mellitus- not on meds at home - FS AC& HS - Lispro sliding scale during the hospital stay - Consistent carb diet - checked Hgb Alc 8.3 -will DC home on Glucophage and out pt f/u * F/E/N - Consistent / low Na diet -Replace electrolyte as needed * VTE: Lovenox Pt requesting discharge, will DC home with out pt followup. To call [facility] with RVP report, tele # [phone] Minutes to complete discharge: 40 Discharge Summary Problems reviewed: Yes Reason For Visit: BRONCHITIS/CHEST PAIN Condition: Guarded - Instructions Diet, Activity, Other Instructions: Diet: Diabetic and low salt diet Weight reduction and smoking cessation advised. Monitor Blood pressure and blood sugar at home Inform to self isolate at home, including family members For any questions, reach out to [facility], tele # [phone], Dulce Cespedes Referrals: Sam Lehman MD [Staff Physician] - 1 Week - Home Medications Comprehensive Discharge Medication List: Ambulatory Orders NK [No Known Home Medication] 01/08/20 This patient is new to me today: Yes Date on this admission: 01/09/20 Emergency Visit: Yes ED Registration Date: 01/08/20 Care time: The patient presented to the Emergency Department on the above date and was hospitalized for further evaluation of their emergent condition. Critical Care patient: No - Discharge Referral Referred to [facility] Med [facility].C[facility] Yes Physician Referral: Sam Lehman MD (Int Med)
== END 2020-01-09 15:29 | disposition home or self-care (01) ==
LOC: FER 17:21 → INTOOBSV 19:37 → FM/S 19:37
PROVIDERS: ADMIT Internal Medicine; ATTEND Nurse Practitioner Family
PROC: 3E03329 Introduction of Other Anti-infective into Peripheral Vein, Percutaneous Approach (ICD-10-PCS; principal; 2020-01-08)
PROC: 3E0337Z Introduction of Electrolytic and Water Balance Substance into Peripheral Vein, Percutaneous Approach (ICD-10-PCS; 2020-01-08)
PROC: 3E033NZ Introduction of Analgesics, Hypnotics, Sedatives into Peripheral Vein, Percutaneous Approach (ICD-10-PCS; 2020-01-08)
PROC: 3E033GC Introduction of Other Therapeutic Substance into Peripheral Vein, Percutaneous Approach (ICD-10-PCS; 2020-01-08)
PROC: 3E013VG Introduction of Insulin into Subcutaneous Tissue, Percutaneous Approach (ICD-10-PCS; 2020-01-08)
PROC: 3E013GC Introduction of Other Therapeutic Substance into Subcutaneous Tissue, Percutaneous Approach (ICD-10-PCS; 2020-01-08)
PROC: 3E0F7GC Introduction of Other Therapeutic Substance into Respiratory Tract, Via Natural or Artificial Opening (ICD-10-PCS; 2020-01-08)
DX: J20.9 Acute bronchitis, unspecified (principal); J44.0 Chronic obstructive pulmonary disease with (acute) lower respiratory infection; R07.89 Other chest pain; I10 Essential (primary) hypertension; E78.5 Hyperlipidemia, unspecified; E11.9 Type 2 diabetes mellitus without complications; F17.210 Nicotine dependence, cigarettes, uncomplicated; E66.9 Obesity, unspecified; Z68.41 Body mass index [BMI] 40.0-44.9, adult; Z91.14 Patient's other noncompliance with medication regimen
CPT/HCPCS: 36415; 71046-TC-FY; 80048; 80053; 80061; 82550; 82553; 82962; 83036; 83735; 84100; 84484; 85025; 87633; 87804; 93005; 99285-25; G0378; J0131

== ENCOUNTER 2021-08-31 09:06 | Emergency (ER) | payer OTHER ==
[2021-08-31 09:33] VITALS: BP 133/91; PULSE 80; TEMP 98.5; BMI 41.4
[2021-08-31] MEDS ORDERED: morphine CARPU-JECT 2 MG/1 ML DISP.SYRIN IVPUSH ONE (10:16)
[2021-08-31] MEDS ORDERED: morphine SULFATE 4 MG/ML VIAL ONE (10:28)
[2021-08-31 11:06] LABS: EOS % 4.9 % (0-4.5); HEMATOCRIT 44.5 % (35.4-49); HEMOGLOBIN 15.3 GM/dl (11.7-16.9); LYMPH % 26.7 % (8-40); MCH 29.5 pg (25.7-33.7); MCHC 34.3 g/dl (32.0-35.9); MEAN CELL VOLUME 85.9 fl (80-96); MEAN PLT VOLUME 9.8 fl (7.5-11.1); MONO % 9.1 % (3.8-10.2); NEUT % 57.3 % (42.8-82.8); PLATELET COUNT 279 10^3/uL (134-434); RBC 5.18 M/mm3 (4.00-5.60); RDW 12.5 % (11.9-15.9); WHITE BLOOD COUNT 7.3 K/mm3 (4.0-10.8)
[2021-08-31 11:12] LABS: INR 1.09 (0.82-1.09); PROTHROMBIN TIME (PATIENT) 12.1 SEC (10.2-13.0)
[2021-08-31 11:15] LABS: ALBUMIN 3.7 g/dl (3.4-5.0); ALK PHOS 64 U/L (45-117); ANION GAP 10 MMOL/L (8-16); BILIRUBIN,TOTAL 0.5 mg/dl (0.2-1); CALCIUM 8.5 mg/dl (8.5-10); CHLORIDE 100 mmol/L (98-107); CO2 26 mmol/L (21-32); GLUCOSE,RANDOM 251 mg/dl (74-106); SGOT/AST 12 U/L (15-37); SGPT/ALT 24 U/L (13-61); SODIUM 136 mmol/L (136-145); TOT PROT 6.6 g/dl (6.4-8.2)
[2021-08-31 16:25] LABS: PH,URINE 5.5 (4.5-8); URINE APPEARANCE CLEAR; URINE BILIRUBIN NEGATIVE (NEGATIVE); URINE COLOR YELLOW; URINE GLUCOSE (UA) 3+ (NEGATIVE); URINE KETONE NEGATIVE (NEGATIVE); URINE LEUK ESTERASE TRACE (NEGATIVE); URINE NITRITE NEGATIVE (NEGATIVE); URINE PROTEIN NEGATIVE (NEGATIVE); URINE UROBILINOGEN 0.2 (0.2-1.0)
[2021-08-31 16:26] LABS: EPI CELLS FEW /HPF; URINE BACTERIA FEW /hpf (NEGATIVE)
[2021-08-31 16:27] LABS: EPITHELIAL CELLS FEW /hpf
== END 2021-08-31 16:20 | disposition left against medical advice (07) ==
LOC: FER 09:06
PROC: 3E033NZ Introduction of Analgesics, Hypnotics, Sedatives into Peripheral Vein, Percutaneous Approach (ICD-10-PCS; principal; 2021-08-31)
DX: D73.5 Infarction of spleen (principal)
CPT/HCPCS: 36415; 74177-TC; 80053; 81003; 81015; 82550; 84484; 85025; 85610; 93005; 99284-25

== ENCOUNTER 2021-09-03 09:55 | Emergency (ER) | payer OTHER ==
[2021-09-03 10:15] VITALS: BP 133/80; PULSE 82; TEMP 97.9; BMI 41.4
== END 2021-09-03 12:33 | disposition home or self-care (01) ==
LOC: FER 09:55
DX: D73.5 Infarction of spleen (principal)
CPT/HCPCS: 99281-25